=== PATIENT | male | born 1995 | race Caucasian/White ===

== ENCOUNTER 2016-08-03 07:01 | Emergency (ER) | payer SELFPAY ==
--- NOTE | 2016-08-05 11:08 | ER ---
ADMIT: 08/03/2016 RM/LOC: [facility] MR#: [id number] [address] [id number] [place] MELO [address] [place] [id number] Emergency Room Report SEX: M AGE: 21 : 1995 DATE: 08/03/2016 ADDENDUM: This is a 21-year-old white male coming in with left lower quadrant pain. 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 He said he has his appendix out. So unless he has ascites and varices, I cannot say definitive to that because his scars are on the left side. CT scan essentially negative. CBC, chemistry, and lipase negative. His urine had a few microscopic hematuria, he could have passed a stone but none was visualized. He is a little constipated on CT, we are going to discharge him home, off work, return tomorrow to work. Follow up as needed. He was given pain medications here. He has was given Zofran and morphine, he is much better. He will get a ride home. CONDITION ON DISCHARGE: Improved. Brandon Ferraro MD/ [place] JOB #: [id number] CC: Brandon Ferraro MD, Attending Physician UNKNOWN, Family Physician
== END 2016-08-03 10:20 | disposition home or self-care (01) ==
LOC: ER 07:01
DX: K59.00 Constipation, unspecified (principal); F17.210 Nicotine dependence, cigarettes, uncomplicated; Z90.49 Acquired absence of other specified parts of digestive tract